=== PATIENT | female | born 1970 | race Asian ===

== ENCOUNTER 2022-02-20 18:05 | Emergency (ER) | payer OTHER ==
[~2022-02-20] VITALS: Ht 154.9 cm; Wt 69.0 kg
[2022-02-20 18:22] VITALS: BP 182/93
[2022-02-20] MEDS ORDERED: LABE200T9 PO (18:30)
[2022-02-20] MEDS ORDERED: HYDR50TA PO (18:30)
[2022-02-20] MEDS ORDERED: LIDOCAINE 5% PATCH TOP SCH (19:00)
[2022-02-20] MEDS ORDERED: ACETAMINOPHEN 325MG TABLET PO ONE (19:00)
[2022-02-20] MEDS ORDERED: LIDO700A15 TP (19:43)
[2022-02-20] MEDS ORDERED: ACET-2708 MT (19:43)
[2022-02-20] MEDS ORDERED: BACL-141 MT (19:43)
== END 2022-02-20 20:20 | disposition home or self-care (01) ==
LOC: ER 18:05
DX: S20.211A Contusion of right front wall of thorax, initial encounter (principal); S40.011A Contusion of right shoulder, initial encounter; S50.11XA Contusion of right forearm, initial encounter; V49.49XA Driver injured in collision with other motor vehicles in traffic accident, initial encounter; Y93.89 Activity, other specified; Y92.89 Other specified places as the place of occurrence of the external cause; Y99.8 Other external cause status; E78.00 Pure hypercholesterolemia, unspecified; I10 Essential (primary) hypertension
CPT/HCPCS: 71045; 73030; 73090; 99284